=== PATIENT | male | born 1985 | race Caucasian/White ===

== ENCOUNTER 2018-10-24 10:06 | Emergency (ER) | payer SELFPAY ==
[2018-10-24 10:34] VITALS: RESP 18; O2SAT 95
--- NOTE | 2018-10-24 11:35 | RAD ---
Date of service: 10/24/2018 PROCEDURE: Left middle finger radiographs. HISTORY: trauma COMPARISON: None available TECHNIQUE: AP radiograph of the left hand, as well as spot oblique and lateral images of left middle finger were obtained. FINDINGS: LEFT MIDDLE FINGER: Left 3rd digit appears intact without acute displaced fracture identified. Remainder of the left hand (as seen on the AP view) is grossly unremarkable. JOINTS: No dislocation. SOFT TISSUES: Soft tissue swelling. No evidence of radiopaque foreign body. OTHER FINDINGS: None. IMPRESSION: Soft tissue swelling. No acute displaced fracture identified.
--- NOTE | 2018-10-24 12:38 | C.PDOC ---
History Of Present Illness 33 year old male presents to the ED for evaluation after he slammed his left 3rd finger in car door two days ago. Patient is c/o pain and swelling to the area. He denies extremity numbness/weakness. Time Seen by Provider: 10/24/18 10:38 Chief Complaint (Nursing): Finger,Hand,&Wrist History Per: Patient History/Exam Limitations: no limitations Onset/Duration Of Symptoms: Days (2) Current Symptoms Are (Timing): Still Present Quality: "Pain" Past Medical History Reviewed: Historical Data, Nursing Documentation, Vital Signs Vital Signs: Last Vital Signs Temp 97.9 F 10/24/18 10:32 Pulse 98 H 10/24/18 10:32 Resp 18 10/24/18 10:32 BP 174/103 H 10/24/18 10:32 Pulse Ox 95 10/24/18 10:32 - Medical History PMH: No Chronic Diseases Surgical History: No Surg Hx Family History: States: Unknown Family Hx - Social History Hx Alcohol Use: Yes Hx Substance Use: No - Immunization History Hx Tetanus Toxoid Vaccination: No Hx Influenza Vaccination: No Hx Pneumococcal Vaccination: No Review Of Systems Musculoskeletal: Positive for: Other (left 3rd finger pain and swelling ) Physical Exam - Physical Exam Appears: Non-toxic, No Acute Distress Skin: Normal Color, Warm, Dry, Other (swelling to the left 3rd digit, with blood noted underneath fingernail ) Head: Atraumatic, Normacephalic Eye(s): bilateral: Normal Inspection Extremity: Normal ROM, Capillary Refill (less than 2 seconds ) Neurological/Psych: Oriented x3, Normal Speech, Normal Cognition, Normal Sensation ED Course And Treatment O2 Sat by Pulse Oximetry: 95 (on RA) Pulse Ox Interpretation: Normal - Other Rad left 3rd figner XR X-Ray: Viewed By Me, Read By Radiologist Interpretation: Date of service: 10/24/2018. PROCEDURE: Left middle finger radiographs. HISTORY: trauma. COMPARISON: None available. TECHNIQUE: AP radiograph of the left hand, as well as spot oblique and lateral images of left middle finger were obtained. FINDINGS: LEFT MIDDLE FINGER: Left 3rd digit appears intact without acute displaced fracture identified. Remainder of the left hand (as seen on the AP view) is grossly unremarkable. JOINTS: No dislocation. SOFT TISSUES: Soft tissue swelling. No evidence of radiopaque foreign body. OTHER FINDINGS: None. IMPRESSION: Soft tissue swelling. No acute displaced fracture identified. Medical Decision Making Medical Decision Making: Progress: left 3rd finger XR shows no fracture. Patient with ungual hematoma. finger was numbed with ice. Used cauterizer to make a hole. was able to drain 0.5ml of blood. Patient tolerated well. area was wrapped. pt stable for discharge. Disposition Counseled Patient/Family Regarding: Studies Performed, Diagnosis - Disposition Disposition: HOME/ ROUTINE Disposition Time: 12:36 Condition: STABLE Forms: Gen Discharge Inst Azeri, Nekst (Azeri) - POA Present On Arrival: None - Clinical Impression Clinical Impression: Subungual hematoma of digit of hand - Scribe Statement The provider has reviewed the documentation as recorded by the Scribe (Deja Mena) Provider Attestation: All medical record entries made by the Scribe were at my direction and personally dictated by me. I have reviewed the chart and agree that the record accurately reflects my personal performance of the history, physical exam, medical decision making, and the department course for this patient. I have also personally directed, reviewed, and agree with the discharge instructions and disposition.
[2018-10-24] MEDS ORDERED: Tdap Vaccine 0.5 ml Vial (10-64 yrs) IM ONE ×2 (12:42→12:49)
[2018-10-24 12:51] VITALS: BP 139/89; PULSE 87; TEMP 98.2
== END 2018-10-24 12:49 | disposition home or self-care (01) ==
LOC: C.ER 10:06
DX: S60.132A Contusion of left middle finger with damage to nail, initial encounter (principal); W22.8XXA Striking against or struck by other objects, initial encounter